=== PATIENT | female | born 1980 | race Caucasian/White ===

== ENCOUNTER 2023-11-09 06:01 | Emergency (ER) | payer OTHER, SELFPAY ==
[2023-11-09] VITALS (29 sets, daily range): BP systolic 99–124; BP diastolic 57–91; PULSE 78–93; RESP 16–18; TEMP 37.1; O2SAT 95–100
--- NOTE | ~2023-11-09 | CT_ITS ---
EXAMINATION: CT abdomen pelvis w con DATE: 11/09/2023 08:50 INDICATION: Abdominal pain and diarrhea, vomiting. History of gastric bypass. TECHNIQUE: Computed tomography (CT) of the abdomen and pelvis was performed with 100 CC Omnipaque 350 intravenous contrast. Automated exposure control and iterative reconstruction technique were employe d. Exam dose: 642.04 mGy-cm total exam DLP. COMPARISON: None. FINDINGS: Minimal discoid atelectasis or scarring at the posterolateral left lung base, left lower lo be. Minimal atelectasis, right lower lobe. No infiltrate or consolidation in the lower lung zones. Normal heart size. No pericardial or pleural effusion. There is diffuse hepatic steatosis. No hepatic space-occupying mass lesion is detected. Status post cholecystectomy. No unusual bile duct dilatation status post cholecystectomy. No pancreatic mass lesion, calcification or pancreatic duct dilatation. Normal splenic size. Normal morphology of the adrenal glands. No renal mass lesion is detected. There is diminished size since scarring of the left kidney likely due to chronic pyelonephritis in th e absence of evidence of significant atherosclerotic calcification of the left renal artery. There is bilateral nonobstructive nephrolithiasis. No ureteral calculus or hydroureteronephrosis is n oted on either side. Normal caliber of the abdominal aorta. No intraperitoneal or retroperitoneal or pelvic mass lesion or adenopathy or ascites. The uterus, adnexal areas and urinary bladder are unremarkable. Small sliding hiatal hernia. Status post gastric bypass surgery. There are fluid levels in the small bowel and right colon. No bowel obstruction, bowel wall thickenin g, pneumatosis or intraperitoneal free air is detected. Status post posterior and interbody surgical fusion at L4-L5, interbody surgical fusion at L5-S1. IMPRESSION: Small bowel and colonic air-fluid levels without obstruction, suggesting enterocolitis Hepatic steatosis Status post cholecystectomy Probable chronic pyelonephritis of left kidney Bilateral nonobstructive nephrolithiasis Small sliding hiatal hernia Status post gastric bypass surgery Reviewed, dictated and finalized at [facility]. Reviewed, dictated and finalized at [facility]. E DYE WORKER IMPRESSION: Small bowel and colonic air-fluid levels without obstruction, sugg esting enterocolitis Hepatic steatosis Status post cholecystectomy Probable chronic pyelonephritis of left kidney Bilateral nonobstructive nephrolithiasis Small sliding hiatal hernia Status post gastric bypass surgery
--- NOTE | 2023-11-09 06:17 | ED.GENADULT ---
HPI - General Adult General Chief complaint: Nausea/Vomiting/Diarrhea <Alcon Sanford MD - Last Filed: 11/14/23 07:08> Stated complaint: N/V X 1 WEEK <Alcon Sanford MD - Last Filed: 11/14/23 07:08> Time Seen by Provider: 11/09/23 06:07 <Alcon Sanford MD - Last Filed: 11/14/23 07:08> History of Present Illness HPI narrative: 43-year-old female presenting to the emergency department for evaluation nausea vomiting and diarrhea. Patient states on 10/30 she was diagnosed with COVID and had onset of nausea and vomiting. Patient reports the symptoms have persisted and continued to worsen. Patient reports she has also started developing diarrhea. Patient reports upper abdominal pain secondary to the vomiting. Patient has also complained of lower back pain which he states is chronic. Patient has a prior history of gastric bypass in 2016 at [facility] <Alcon Sanford MD - Last Filed: 11/14/23 07:08> Related Data Allergies/adverse reactions: Allergies Allergy/AdvReac Type Severity Reaction Status Date / Time acetaminophen [From Vicodin] AdvReac Gastrointestinal Verified 11/09/23 06:07 Upset hydrocodone [From Vicodin] AdvReac Gastrointestinal Verified 11/09/23 06:07 Upset levetiracetam [From Keppra] AdvReac Other Verified 11/09/23 06:07 tramadol AdvReac Gastrointestinal Verified 11/09/23 06:06 Upset <Alcon Sanford MD - Last Filed: 11/14/23 07:08> Review of Systems Review of Systems: All systems reviewed & are unremarkable except as noted in HPI and below <Alcon Sanford MD - Last Filed: 11/14/23 07:08> PMFSH Past Medical History Medical History: Medical History (Updated 11/10/23 @ 00:00 by Dk Parker) Chronic pain syndrome <Alcon Sanford MD - Last Filed: 11/14/23 07:08> Surgical History Surgical History: Surgical History (Updated 11/09/23 @ 10:09 by Sydnie Lucero MD) H/O gastric bypass <Alcon Sanford MD - Last Filed: 11/14/23 07:08> Social History Social History: Social History (Updated 11/09/23 @ 10:10 by Sydnie Lucero MD) Smoking status: Never smoker Alcohol intake: never <Alcon aSnford MD - Last Filed: 11/14/23 07:08> Exam Narrative: APPEARANCE: Uncomfortable. HEAD: normocephalic, atraumatic. EYES: PERRLA/EOMI, conjunctivae clear. NOSE: Normal no drainage NECK: Supple. No adenopathy, no masses. RESPIRATORY: Airway patent, respirations nonlabored. Clear to auscultation bilaterally, no rales, rhonchi, wheezing. CARDIOVASCULAR: Regular rate and rhythm without murmurs rubs or gallops. ABDOMINAL: Upper abdominal tenderness to palpation, some MUSCULOSKELETAL: Moves all extremities. Strength/ROM intact, No edema, No calf tenderness. NEURO: Alert. Cranial nerves II through XII intact. SKIN: Warm, dry. Normal Color <Alcon Sanford MD - Last Filed: 11/14/23 07:08> GI: GI Palp: Yes Soft to palpation, Yes Tenderness to palpation present (GI) (mild), No Guarding due to palpation present (GI), No Rigid due to palpation and No Hernia present <Sydnie Lucero MD - Last Filed: 11/09/23 16:55> Auscultation: bowels sounds not normal <Sydnie Lucero MD - Last Filed: 11/09/23 16:55> Course FIELD HANDYMAN/PA Physician Supervision For this patient encounter, I reviewed the FIELD HANDYMAN or PA documentation, treatment plan, and medical decision making; and I had [id number] time with this patient. <Alcon Sanford MD - Last Filed: 11/14/23 07:08> Reevaluation(s) Reevaluation #1: Patient has not had nausea or vomiting. Labs unremarkable. CT shows enterocolitis. UA shows LE 1+ and wbc 11-20. Will put on UTI <Sydnie Lucero MD - Last Filed: 11/09/23 16:55> Date: 11/09/23 <Sydnie Lucero MD - Last Filed: 11/09/23 16:55> Time: 10:10 <Sydnie Lucero MD - Last Filed: 11/09/23 16:55> Vital Signs Vital signs: Vital Signs Temperature 98.8 F 11/09/23 06:02 Pulse Rate 79
--- NOTE | 2023-11-09 06:29 | PC.NURSE ---
Pt mother(Vania Trivedi) would like an update once tests are completed. She has POA for her daughter.. Mom's
--- NOTE | 2023-11-09 06:33 | PC.NURSE ---
Mom (Vania Trivedi) would like an update on daughter once test results are back. [phone] - Mom has POA
[2023-11-09] MEDS: SODIUM CHLORIDE 0.9% IV 1,000 ML 999 ML IV CONT (06:43)
[2023-11-09] MEDS: ONDANSETRON INJ 4 MG/2 ML VIAL IV PUSH ×2 (06:43→08:59)
[2023-11-09 06:57] LABS: Basophils Percent Auto 0.2 % (0.2-1.2); Eosinophils Absolute Auto 0.2 K/mm3 (0-0.3); Eosinophils Percent Auto 2.6 % (0-4.4); Hematocrit 43.4 % (37.0-47.0); Hemoglobin 13.6 g/dL (12.0-15.0); Immature Granulocyte Absolute 0.01 K/mm3 (0.00-0.031); Immature Granulocyte Percent A 0.1 % (0-0.5); Lymphocytes Percent Auto 3.6 % (18.3-44.2); Mean Corpuscular HGB Conc 31.3 g/dl (32-36); Mean Corpuscular Volume 92.5 fl (80-100); Mean Platelet Volume 9.8 fl (7.4-10.4); Monocytes Absolute Auto 0.4 K/mm3 (0.1-0.6); Monocytes Percent Auto 4.6 % (2.6-8.5); Neutrophils Absolute Auto 7.4 K/mm3 (1.3-6.7); Neutrophils Percent Auto 88.9 % (45.5-73.1); Platelet Count Result 307 k/mm3 (150-375); Red Blood Count 4.69 M/mm3 (4.2-5.4); Red Cell Distribution Width 13.7 % (11.5-14.5); White Blood Count 8.3 K/mm3 (4.5-10.0)
[2023-11-09 07:35] LABS: Influenza A QL RT-PCR Negative (Negative); Influenza B QL RT-PCR Negative (Negative); RSV RNA, RT-PCR Negative (Negative); SARS-CoV-2 RNA PCR Negative (Negative)
[2023-11-09 07:43] LABS: Lactic Acid Reflex 1.6 mmol/L (0.7-2.0)
[2023-11-09 07:47] LABS: Appearance Urine Cloudy (Clear); Bacteria Urine None Seen /hpf; Bilirubin Urine Negative (Negative); Blood Urine Negative (Negative); Color Urine Yellow (Yellow); Glucose Urine UA Negative (Negative); Ketones Urine Negative (Negative); Leukocyte Esterase Ur 1+ LEU/UL (Negative); Nitrate Urine Negative (Negative); Non Pathogenic Casts 0-2; Protein Urine Negative (Negative); RBC Urine 0-2 /hpf (0-2); Specific Grav Ur 1.022 (1.001-1.035); Squamous Epithelial Cell Urine Occasional /hpf (Few); Urobilinogen Urine 0.2 mg/dL (<2.0); pH Urine 7.5 (5.0-9.0)
[2023-11-09 07:53] LABS: Alanine Aminotransferase 25 U/L (6-35); Albumin Level 4.2 g/dL (3.5-5.1); Alkaline Phosphatase 103 U/L (38-126); Anion Gap 10 mmol/L (8-16); Aspartate Amino Transferase 40 U/L (14-36); Bilirubin,Total 0.5 mg/dL (0.2-1.3); Blood Urea Nitrogen 19 mg/dL (7-17); Calcium 8.5 mg/dL (8.4-10.2); Carbon Dioxide 21 mmol/L (22-30); Chloride 107 mmol/L (98-107); Estimated CRCL calculation 84 ml/min; Estimated Glomerular Filt Rate > 60; Glucose 87 mg/dL (65-110); Lipase 104 U/L (23-300); Potassium 3.6 mmol/L (3.4-5.0); Sodium 138 mmol/L (137-145)
[2023-11-09 08:31] LABS: Add Urine Microscopic? YES
[2023-11-09] MEDS: KETOROLAC 30 MG/ML VIAL (*BKC) IV PUSH (09:02)
[2023-11-09] MEDS: PANTOPRAZOLE SODIUM IV 40 MG VIAL IV PUSH (09:02)
[2023-11-09] MEDS: DICYCLOMINE HCL INJ 20 MG/2 ML VIAL IM (09:06)
[2023-11-09] MEDS: LACTATED RINGERS 1,000 ML 999 ML IV CONT (09:08)
--- NOTE | 2023-11-09 09:47 | PC.NURSE ---
Pt gave permission to call her mother Vania who is also her POA, this RN called Vania and gave her an update regarding pt. Vania : [phone]
== END 2023-11-09 10:56 | disposition home or self-care (01) ==
PROVIDERS: Emergency Medicine; Emergency Provider General Practice; PCP Internal Medicine
DX: E86.0 Dehydration (principal); K52.9 Noninfective gastroenteritis and colitis, unspecified; Z20.822 Contact with and (suspected) exposure to COVID-19
CPT/HCPCS: 36415; 74177; 80053; 81001; 81025; 83605; 83690; 85025; 87086; 87088; 87637; 96361; 96372; 96374; 96375; 96376; 99284; C9113; J0500; J1885; J2405; J7030; J7120; Q9967

== ENCOUNTER 2025-08-02 13:13 | Outpatient (CLI) | payer OTHER, SELFPAY ==
[2025-08-02 13:45] LABS: INR 1.0; Prothrombin Time 12.9 Seconds (11.1-14.7)
[2025-08-02 13:46] LABS: Partial Thromboplastin Time 30.4 Seconds (22.3-36.8)
[2025-08-02 13:54] LABS: Anion Gap 10 mmol/L (4-12); Blood Urea Nitrogen 17 mg/dL (7-17); Calcium 8.8 mg/dL (8.4-10.2); Carbon Dioxide 17 mmol/L (22-30); Chloride 111 mmol/L (98-107); Estimated Glomerular Filt Rate > 60; Glucose 80 mg/dL (65-110); Potassium 3.7 mmol/L (3.4-5.0); Sodium 138 mmol/L (137-145)
--- OUTSIDE RECORDS SUMMARY | 2025-08-02 15:43 | XMS_ITS | Encounter Summary ---
Author Organization [facility] Address [address] [place] [phone] Phone Care Team Providers Care Car Distributor Name Role Phone Jc Ramirez MD Primary Care Provider [phone] Reason for Visit * Reason Comments New Med Request Encounter Details Date Type Department Care Team (Late st Contact Info) Description 07/24/2022 Refill [facility], [address] [phone] [place] [address] [place] [phone] Social History Tobacco Use Types Packs/Day Years Used Date Smoking Tobacco: Never Alcohol Use Standard Drinks/Week Comments No 0 (1 standard drink = 0.6 oz pur e alcohol) Comments Unknown Sex and Gender Information Value Date Recorded Sex Assigned at Not on file Legal Sex Female 2:51 PM EDT Gender Identity Not on file Sexual Orientation Not on file documented as of this encounter Plan of Treatment Not on file documented as of this encounter Visit Diagnoses Not on filedocumented in this encounter Care Teams Car Distributor Relationship Specialty Start Date End Date Jc Ramirez MD PCP - General Internal Medicine 05/15/21 documented as of this encounter
--- OUTSIDE RECORDS SUMMARY | 2025-08-02 15:43 | XMS_ITS | Encounter Summary ---
Author Organization [employer] [facility] Address [address] [place] [phone] Phone Care Team Providers Care Paint Crew Supervisor Name Role Phone Jc Ramirez MD Primary Care Provider [phone] Reason for Visit * Reason Comments Med Refill Encounter Details Date Type Department Care Team (Late st Contact Info) Description 08/13/2022 Refill [facility] [address] [phone] [place] [address] [place] [phone] Social History Tobacco Use Types Packs/Day [...] on file documented as of this encounter Miscellaneous Notes * Telephone Encounter - Asya Ritchie CMA - 08/13/2022 9:21 AM CDT Pt has 3 can and 1 no show she has to contact her pcp documented in this encounter Plan of Treatment Not on file documented as of this encounter Visit Diagnoses Not on filedocumented in this encounter Care Teams Paint Crew Supervisor Relationship Specialty Start Date End Date Jc Ramirez MD PCP - General Internal Medicine 05/15/21 documented as of this encounter
--- OUTSIDE RECORDS SUMMARY | 2025-08-02 15:43 | XMS_ITS | Clinical Summary ---
Author Organization [facility] Address [address] [place] [address] Phone Care Team Providers Care Tester Food Products Name Role Phone Jc Ramirez MD Primary Care Provider Allergies Active Allergy Reactions Criticality Noted Date Comments Silver Other (See Comments) 09/01/2017 Opsite Tramadol Nausea and Vomiting,Dizziness Low 2014 Medications levomilnacipra n (FETZIMA) 80 mg Extended Release 24 hour capsule Take 120 mg by mouth daily . Active busPIRone (BUSPAR) 10 mg tablet Take 15 mg by mouth 4 times daily . Active pregabalin (LYRICA) 100 mg Capsule Take 150 mg by mouth 3 times daily . Active NORETHINDRONE- E.ESTRADIOL-IR ON (MINASTRIN 24 FE ORAL) Take 1 Tablet by mouth late in the day . Active hyoscyamine sulfate (ANASPAZ RAPID DISSOLVE) 0.125 mg Tablet, Rapid Dissolve Place under tongue every 4 hours as needed. Active polyethylene glycol (MIRALAX) 17 gram Powder in Packet Take 17 Gram by mouth 1 time daily as needed for Constipation. Active valACYclovir (VALTREX) 500 mg tablet Take 500 mg by mouth daily at bedtime . Active FERROUS FUMARATE ORAL Take 1 Tablet by mouth nightly as needed . Active cholecalcifero l, vitamin D3, 1,000 unit Take 1,000 Units by mouth daily . Active multivitamin,t u-htin-na-min (THERA-M) 27-0.4 mg Tablet Take 1 Tab by mouth daily. Active CALCIUM CARBONATE/ANGELITO MIN D3 (CALCIUM+D ORAL) Take 1 Tablet by mouth daily . Active guar gum (BENEFIBER) Packet Take 1 Packet by mouth daily. Active famotidine (PEPCID) 20 mg tablet Take 20 mg by mouth 1 time daily as needed . Active Naproxen-Esome prazole Mag (VIMOVO) 500-20 mg Tab,IR & Delay Rel,Multiphasi c Take 1 Tablet by mouth 2 times daily . Active oxyMORphone 30 mg Extended Release 12 hour tablet Take 30 mg by mouth every 12 hours. Active oxyCODONE (ROXICODONE) 30 mg tabletIndicati ons:1-2 pills Take 60 mg by mouth every 4 hours as needed for Pain . Active cetirizine HCl (ZYRTEC ORAL) Take by mouth 1 time daily as needed. Active azelastine-flu ticasone (DYMISTA) 137-50 mcg/spray [place], Non-Aerosol Administer 1 [place] in each nostril 2 times daily. Active clonazePAM (KlonoPIN) 0.5 mg Tablet Take 1 mg by mouth daily at bedtime. Active cyanocobalamin (VITAMIN B-12) 1,000 mcg/mL Solution Inject 1 mL (1,000 mcg) by intramuscular injection every 30 days. 1 mL 8 Active Active Problems Problem Noted Date Diagnosed Date Pre-syncope Dehydration Bradycardia Gastroenteritis Hypotension Abnormal thyroid function test AUGIE (acute kidney injury) Immunizations Immunization Administration Dates Next Due (ADACEL/BOOSTRIX)(10 YR UP) TDAP VACCINE, 0.5ML, IM 11/12/2018 INFLUENZA VACCINE QUADRIVALENT 3 YR UP PF IM Family History Medical History Relation Name Comments Heart Disease Father Stroke Father Cancer Mother skin Relation Name Status Comments Father Alive Mother Alive Social History Tobacco Use Types Packs/Day Years Used Date Smoking Tobacco: Never Alcohol Use Standard Drinks/Week Comments Yes 0 (1 standard drink = 0.6 oz pur e alcohol) rare Comments No Sex and Gender Information Value Date Recorded Sex Assigned at Not on file Legal Sex Female 5:26 PM INTERNAL CONTROLS SPECIALIST Gender Identity Not on file Sexual Orientation Not on file Last Filed Vital Signs Vital Sign Reading Time Taken Comments Blood Pressure 121/91 11/14/2018 12:33 PM INTERNAL CONTROLS SPECIALIST Pulse 100 11/14/2018 12:33 PM INTERNAL CONTROLS SPECIALIST Temperature 36.8 C (98.3 F) 11/14/2018 12:29 PM INTERNAL CONTROLS SPECIALIST Respiratory Rate 18 11/14/2018 12:29 PM INTERNAL CONTROLS SPECIALIST Oxygen Saturation 96% 11/14/2018 12:29 PM INTERNAL CONTROLS SPECIALIST Inhaled Oxygen Concentration - - Weight 99.3 kg (219 lb) 11/13/2018 11:00 PM INTERNAL CONTROLS SPECIALIST Height 170.2 cm (5' 7) 11/13/2018 11:00 PM INTERNAL CONTROLS SPECIALIST Body Mass Index 34.3 11/13/2018 11:00 PM INTERNAL CONTROLS SPECIALIST Plan of Treatment Health Maintenance Due Date Last Done Comments HEPATITIS B VACCINES (1 of 3 - 19+ 3-dose series) 1997 HPV/Cotest (21-29) 1999 CERVICAL CANCER SCREENING 2008 HPV/Cotest (30-65) 2008 PAP SMEAR 2008 BREAST CANCER SCREENING 2018 COLORECTAL SCREENING 2023 Colorectal Cancer Screening 2023 FIT-DNA Q 3 years 2023 FIT/FOBT Q 1 year 2023 Flex Sig/CT Colonography Q 5 years 2023 INFLUENZA VACCINE (#1) 2025 11/13/2018, 2016 DTAP/TDAP/TD VACCINES (2 - Td or Tdap) 11/12/2028 Medical Devices Implanted Type Area Crm Manager Device Identifier Shelf Expiration Date Model / Serial / Lot Metronic Capstone Spinal System Implanted:Qty: 1 on 04/15/2015 by Jay Greenberg MD at [facility] Cage N/A: Spine Lumbar MEDTRONIC - SPINAL fka KYPHON 11/25/2020 [id number] / / [id number] 40 Mm Darío Implanted:Qty: 2 on 04/15/2015 by Jay Greenberg MD at [facility] Darío N/A: Spine Lumbar MEDTRONIC - SPINAL fka KYPHON [id number] / / Description:sterilized march 192014 load 413 Screw Solera Ma 6.5x40mm [id number] - Ssterilized April 14, 2015 Load 413 Implanted:Qty: 2 on 04/15/2015 by Jay Greenberg MD at [facility] Screw Left: Spine Lumbar MEDTRONIC- SOFAMOR DANEK [id number] / STERILIZED APRIL 14, 2015 LOAD 413 / Screw Solera Pooja Ma 7.5x35mm [id number] - Ssterilized April 14, 2015 Load 413 Implanted:Qty: 2 on 04/15/2015 by Jay Greenberg MD at [facility] Screw Left: Spine Lumbar MEDTRONIC- SOFAMOR DANEK [id number] / STERILIZED APRIL 14, 2015 LOAD 413 / Set Screw Sextant Break-Off [id number] - Ssterilized April 14, 2015 Load 413 Implanted:Qty: 4 on 04/15/2015 by Jay Greenberg MD at [facility] Screw Left: Spine Lumbar MEDTRONIC- SOFAMOR DANEK [id number] / STERILIZED APRIL 14, 2015 LOAD 413 / Sealant Floseal W/ Adptr 10ml [id number] - [id number] Implanted:Qty: 1 on 04/15/2015 by Jay Greenberg MD at [facility] Sealant Left: Spine Lumbar TOLEDO- BIOSCIENCE 07/18/2016 [id number] / / [id number] Refugio Dbm Matrix Strips Implanted:Qty: 1 on 04/15/2015 by Jay Greenberg MD at [facility] MEDTRONIC- SOFAMOR DANEK 10/31/2017 [id number] / [id number] / [place] OPTIONS O [id number] Member Subscriber Plan / Payer ( fective 2021-Present) Name:Sixto Becerra Relation to Subscriber:Self Name:Sixto Becerra Payer ID:[id number] ([facility]) Type:[facility] Address: [facility] [id number] [place] [id number] MEDICARE PART A AND B Advance Directives For more information, please contact: [phone] * Full Code (Latest Code Status on File) Date Activated Date Inactivated Comments 11/13/2018 1:06 AM 11/14/2018 5:51 PM * Full Code Date Activated Date Inactivated Comments 04/15/2015 7:11 AM 04/17/2015 5:40 PM * Full Code Date Activated Date Inactivated Comments 04/15/2015 6:12 AM 04/15/2015 7:11 AM Care Teams Tester Food Products Relationship Specialty Start Date End Date Jc Ramirez MD [address] [place] [id number] PCP - General Internal Medicine 11/12/18
--- OUTSIDE RECORDS SUMMARY | 2025-08-02 15:43 | XMS_ITS | Clinical Summary ---
Author Organization [employer] [facility] [employer] [facility] Address [address] [phone] Phone Care Team Providers Care Axle Turner Name Role Phone Jc Ramirez MD Primary Care Provider [phone] Medications Azelastine-Flutic asone 137-50 MCG/ACT suspension Administer into affected nostril(s) daily Active Buprenorphine HCl-Naloxone HCl 12-3 MG film 05/05/20 21 Active busPIRone (BUSPAR) 15 MG tablet Take 15 mg by mouth 3 times a day 04/19/20 21 Active cetirizine (ZyrTEC) 10 MG tablet Take 10 mg by mouth daily Active cholecalciferol (VITAMIN D-3) 25 MCG (1000 UT) tablet Take 1,000 Units by mouth daily Active cyanocobalamin (VITAMIN B-12) 1000 MCG/ML injection cyanocobalamin (vit B-12) 1,000 mcg/mL injection solution 11/14/20 18 Active ferrous gluconate (FERGON) 324 (38 Fe) MG tablet 1 (one) time each day 07/21/20 15 Active FLUoxetine (PROzac) 20 MG capsule fluoxetine 20 mg capsule 11/19/19 19 Active gabapentin (NEURONTIN) 600 MG tablet Take 600 mg by mouth at night if needed 06/22/20 20 Active hydrOXYzine (ATARAX) 25 MG tablet Take 25 mg by mouth 1 (one) time each day if needed for anxiety 05/10/20 21 Active hyoscyamine (ANASPAZ) 0.125 MG disintegrating tablet hyoscyamine 0.125 mg disintegrating tablet Active ibuprofen (ADVIL,MOTRIN) 800 MG tablet Take 800 mg by mouth every 8 (eight) hours 06/22/20 20 Active montelukast (SINGULAIR) 10 MG tablet Take 10 mg by mouth at bed time 01/11/20 19 Active ondansetron (ZOFRAN) 4 MG tablet Take 4 mg by mouth 1 (one) time each day if needed 03/04/20 21 Active pantoprazole (PROTONIX) 40 MG EC tablet Take 20 mg by mouth 2 (two) times a day Active polyethylene glycol (GLYCOLAX) 17 GM/SCOOP powder Take 17 g by mouth 1 (one) time each day if needed Active potassium chloride (MICRO-K) 10 MEQ CR capsule Take 20 mEq by mouth 1 (one) time each day 04/26/20 21 Active sulfamethoxazole- trimethoprim 800-160 MG per tablet sulfamethoxazole 800 mg-trimethoprim 160 mg tablet Active B-D 3CC LUER-JESSE SYR 23GX1 23G X 1 3 ML misc 03/17/20 21 Active valACYclovir (VALTREX) 500 MG tablet Take 500 mg by mouth 1 (one) time each day if needed 01/23/20 19 Active sodium bicarbonate 650 MG tablet TAKE TWO TABLETS BY MOUTH TWICE DAILY 180 tablet 11/13/20 21 Active nitrofurantoin (MACRODANTIN) 100 MG capsule Take 1 capsule (100 mg total) by mouth in the morning and 1 capsule (100 mg total) in the evening. 40 capsule 02/07/20 22 Active famotidine (PEPCID) 20 MG tablet TAKE 2 TABLETS BY MOUTH EVERY NIGHT AT BEDTIME 90 tablet 06/18/20 22 Active spironolactone (ALDACTONE) 25 MG tablet Take 1 tablet (25 mg total) by mouth every morning 90 tablet 1 07/11/20 22 Active potassium citrate 10 MEQ (1080 MG) CR tablet Take 1 tablet (10 mEq total) by mouth in the morning and 1 tablet (10 mEq total) in the evening. 180 tablet 1 07/24/20 22 Active Family History Medical History Relation Comments Heart disease Father Cancer Mother Relation Status Comments Father Mother Social History Tobacco Use Types Packs/Day Years [...] Sign Reading Time Taken Comments Blood Pressure 140/82 02/02/2022 11:02 AM CDT Pulse 82 02/02/2022 11:02 AM CDT Temperature 36.8 C (98.2 F) 02/02/2022 11:02 AM CDT Respiratory Rate 18 02/02/2022 11:02 AM CDT Oxygen Saturation 98% 02/02/2022 11:02 AM CDT Inhaled Oxygen Concentration - - Weight 77.1 kg (170 lb) 02/02/2022 11:02 AM CDT Height 157.5 cm (5' 2) 02/02/2022 11:02 AM CDT Body Mass Index 31.09 02/02/2022 11:02 AM CDT Plan of Treatment Health Maintenance Due Date Last Done Comments Hepatitis B Vaccine (1 of 3 - 19+ 3-dose series) 1997 Pneumococcal Vaccine: Peds ( 0 to 5 Years) and At-Risk Patients (6 to 49 Years) (2 of 2 - PCV) 08/31/2022 08/31/2021 Influenza Vaccine (#1) 2025 , 08/30/2021, 08/18/2019, Additional history exists Insurance Medicaid [place] Care Teams Axle Turner Relationship Specialty Start Date End Date Jc Ramirez MD PCP - General Internal Medicine 05/15/21
--- OUTSIDE RECORDS SUMMARY | 2025-08-02 15:43 | XMS_ITS | Encounter Summary ---
Author Organization [facility] Address [address] [facility] [address] [place] [address] Phone Care Team Providers Care Paint Tinter Name Role Phone Jc Ramirez MD Primary Care Provider + [phone] Norberto Tsang MD Unavailable [phone] Byron Mark MD Unavailable Daisy Fontenot RN Unavailable Unavailab Walker Ricks MD Unavailable [phone] Jordy Ryan DO Unavailable [phone] Encounter Details Date Type Department Care Team (Late st Contact Info) Description 02/28/2021 Ophth Exam [facility] Medicine Ophthalmology [address] [place] [address] [place] [id number] Adalid Sultana MD [address] [place] [address] Social History Tobacco Use Types Packs/Day Years Used Date Smoking Tobacco: Former Smokeless Tobacco: Never Alcohol Use Standard Drinks/Week Comments No 0 (1 standard drink = 0.6 oz pur e alcohol) Social Connection and Isolation Panel Answer Date Recorded In a typical week, how many times do you talk on the phone with family, friends, or neighbors? Three times a week 02/02/2021 How often do you get togethe r with friends or relatives? Never 02/02/2021 How often do you attend chur ch or jainism services? Never 02/02/2021 Do you belong to any clubs o r organizations such as adventist groups, unions, fraternal or athletic groups, or school groups? No 02/02/2021 How often do you attend meet ings of the clubs or organizations you belong to? Never 02/02/2021 Are you , , di vorced, , never , or living with a partner? 02/02/2021 Overall Financial Resource Strain (CARDIA) Answe r Date Recorded How hard is it for you to pa y for the very basics like food, housing, medical care, and heating? Very hard 02/02/2021 Hunger Vital Sign Answer Date Recorded Worried About Running Out of Food in the Last Ye ar Never true 01/07/2020 Ran Out of Food in the Last Year Never true 01/07/2020 PRAPARE - Transportation Answer Date Re corded In the past 12 months, has l ack of transportation kept you from medical appointments or from getting medications? No 01/16 In the past 12 months, has l ack of transportation kept you from meetings, work, or from getting things needed for daily living? 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 Gender Identity Female 06/12/2021 7:17 PM CDT Sexual Orientation Straight 06/12/2021 7: 17 PM CDT documented as of this encounter Plan of Treatment Not on file documented as of this encounter Visit Diagnoses Not on filedocumented in this encounter Additional Health Concerns Infection Onset Date Last Indicated Resolved Time COVID: Suspected 07/13/2021 07/13/2021 07/13/2021 9:02 PM CDT COVID: Suspected 08/07/2021 08/07/2021 08/07/2021 12:55 PM CDT Rhino/Enterovirus 08/07/2021 08/07/2021 08/14/2021 3:05 AM CDT COVID: Suspected 08/28/2021 08/28/2021 08/29/2021 12:04 AM CDT 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 09/26/21; 04/23/23 09/26/2021 04/23/2023 CRE Comment:CRE ESBL E.coli urine 09/26/21; 04/23/23 09/26/2021 04/23/2023 documented as of this encounter Eye Exam Visual Acuity Right eye Left eye Near cc 20/20 20/20 Tonometry (Tonopen, 1:00 PM) Right eye Left eye Pressure 13 9 Pupils Dark Light Shape React APD Right eye 6 3 Round Brisk - Left eye 5 2 Round Brisk - Visual Leung (Counting fingers) Right eye Left eye Full Full Extraocular Movement Right eye Left eye Full Full External Exam Right eye Left eye External Normal Normal Slit Lamp Exam Right eye Left eye Lids/Lashes Normal Normal Conjunctiva/Sclera White and quiet White and fatmata et Cornea Clear Clear Anterior Chamber Deep and quiet Deep and quiet Iris Round and reactive Round and catherine ctive Lens Clear Clear Vitreous Normal Normal Fundus Exam Right eye Left eye Disc Normal, PPA, sharp m argins, no elevation, no pallor Normal, PPA, sharp margins, no elevation, no pallor C/D Ratio 0.2 0.2 Macula Normal, flat, no heme Normal, fl at, no heme Vessels Normal c/c Normal c/c Periphery Normal, no heme, att ached 360 w/o RD/RT Normal, no heme, attached 360 w/o RD/RT Care Teams Paint Tinter Relationship Specialty Start Date End Date Jc Ramirez MD PCP - General Internal Medicine 11/20/18 [place] [id number] [address] [address] Consulting Physician Cardiovascular Disease 12/15/18 [place] [id number] [address] [address] Consulting Physician Pain Management 12/15/18 Daisy Fontenot, RN Registered Nurse 12/29/18 [place] [id number] [address] [address] Consulting Physician Pulmonary Disease 08/10/21 [place] [id number] [address] [address] Consulting Physician Nephrology 09/01/21 documented as of this encounter
--- OUTSIDE RECORDS SUMMARY | 2025-08-02 15:44 | XMS_ITS | Clinical Summary ---
Author Organization [facility] Address [address] [place] [address] Care Team Providers Care Mental Health Professional Name Role Phone Jc Ramirez MD Primary Care Provider [phone] Norberto Tsang MD Unavailable [phone] Byron Mark MD Unavailable [phone] Daisy Fontenot RN Unavailable Unavailab Walker Ricks MD Unavailable [phone] Jordy Ryan DO Unavailable Allergies Active Allergy Reactions Criticality Noted Date Comments Adhesive Tape-Silicones Blisters High 07/19/2020 Hydrocodone-Acetaminophen Dizziness,Nausea & Vomiting Medi um 08/28/2016 Levetiracetam Other (See comments) Low 08/28/2021 falls Silver Blisters High 09/01/2017 Opsite Tramadol Hcl Nausea And Vomiting Medium 08/28/2016 Medications cyanocobalamin (Vitamin B-12) 1,000 mcg/mL injection Inject 1,000 mcg into the muscle as instructed every 30 (thirty) days Around the 15 of the month Active FLUoxetine (PROzac) 20 mg capsule Take 1 capsule by mouth daily. 11/19/19 19 Active valACYclovir (VALTREX) 500 mg tablet Take 500 mg by mouth daily as needed Active busPIRone (BUSPAR) 15 mg tabletIndications: Generalized Anxiety Disorder Take 1 tablet (15 mg total) by mouth 3 (three) times a day. 01/11/20 19 Active Additional Information Patient taking differently:15 mg oral4 times daily, Indications: Generalized Anxiety Disorder, Informant: Self, Reported on 01/06/2020 montelukast (SINGULAIR) 10 mg tablet Take 1 tablet (10 mg total) by mouth nightly. 01/11/20 19 Active cholecalciferol (VITAMIN D-3) 25 mcg (1,000 unit) tablet Take 1,000 Units by mouth daily Active hyoscyamine (OSCIMIN) 0.125 mg hyoscyamine 0.125 mg disintegrating tablet Active multivitamin,tx-ir st-Ua-RL-min 27-0.4 mg tablet Take 1 tablet by mouth daily Active polyethylene glycol (MIRALAX) 17 gram packet Take 17 g by mouth daily as needed Active gabapentin (NEURONTIN) 600 mg tablet Take 600 mg by mouth nightly 06/22/20 20 Active ferrous gluconate 324 mg (37.5 mg of elemental iron) tablet daily 07/21/20 15 Active syringe with needle (BD Luer-Paulino Syringe) 3 mL 23 x 1 syringe BD Luer-Paulino Syringe 3 mL 23 x 1 Active norethindrone (MICRONOR) 0.35 mg tablet norethindrone (contraceptive) 0.35 mg tablet Active hydrOXYzine (ATARAX) 25 mg tablet 03/15/20 21 Active buprenorphine-nalo xone (SUBOXONE) 8-[address] 1 Film under the tongue 2 (two) times a day Active albuterol 2.5 mg /3 mL (0.083 %) nebulizer solution Take 3 mL (2.5 mg total) by nebulization every 6 (six) hours as needed for wheezing 75 mL 08/10/20 21 Active lemborexant (Dayvigo) 5 mg tablet Take 5 mg by mouth nightly as needed Active acetaminophen (TYLENOL) 325 mg tablet Take 2 tablets (650 mg total) by mouth every 6 (six) hours as needed for pain 30 tablet 09/27/20 21 Active serdexmethylphen-d exmethylphen (Azstarys) 39.2 mg- 7.8 mg capsule Take by mouth Active buprenorphine-nalo xone (SUBOXONE) 4-[address] 1 Film under the tongue daily PM Active ondansetron ODT (ZOFRAN-ODT) 8 mg disintegrating tabletIndications: Nausea Take 1 tablet (8 mg total) by mouth every 8 (eight) hours as needed for nausea or vomiting 20 tablet 04/28/20 Active ketorolac (TORADOL) 10 mg tablet Take 1 tablet (10 mg total) by mouth every 6 (six) hours as needed for pain 10 tablet 04/28/20 Active prochlorperazine (COMPAZINE) 5 mg tablet Take 1 tablet (5 mg total) by mouth every 6 (six) hours as needed for nausea or vomiting 10 tablet 04/28/20 Active Active Problems Problem Noted Date Diagnosed Date Obstructive sleep apnea (adult) (pediatric) 05/2025 UTI (urinary tract infection), uncomplicated 07/2023 Assessment & Plan (04/27/2023 4:34 PM CDT): ESBL E coli (sensitive to fosfomycin & nitrofurantoin), diagnosed 04/23/23 (ED visit). No dysuria, but has b/l flank pain. -s/p fosfomycin 3g x1 in the ED. I confirmed w/ the clinical phamacist textile conservator that one dose is adequate. If she worsens, then can give 1-2 more doses at q3days intervals, or give a course of nitrofurantoin. -CT 04/26/23 w/o explanation. She has non obstructive stones -Ultrasound kidney > No hydroneophrosis in either kidney, no change in stone burden vs CT 4 days prior with bilateral small nonobstructing stones. - Endorses crampy flank pain, agreeable to ketorolac. Assessment & Plan (04/26/2023 7:39 PM CDT): ESBL E coli (sensitive to fosfomycin & nitrofurantoin), diagnosed 04/23/23 (ED visit). No dysuria, but has b/l flank pain. -s/p fosfomycin 3g x1 in the ED. I confirmed w/ the clinical phamacist textile conservator that one dose is adequate. If she worsens, then can give 1-2 more doses at q3days intervals, or give a course of nitrofurantoin. -CT 04/26/23 w/o explanation. She has non obstructive stones -Ultrasound kidney. If improves, no need this need not delay discharge Falls 04/26/2023 Assessment & Plan (04/27/2023 1:19 PM CDT): Unclear etiology. +mild vertigo. No lightheadedness. No LOC. HCT normal. Most likely etiology is polypharmacy with numerous [employer]ESS [employer]ER active meds, including suboxone, fluoxetine, atarax prn & buspirone prn (takes multiple doses of both daily), Azstarys (recently started for ADHD), Dayvigo (for insomnia), hyoscyamine. EKG ok. Low c/f overall for cardiac or [employer]OTECH[employer] PRESS TENDER etiology. - Hold buspirone, hold Azstarys (serdexmethylphenidate / dexmethylphenidate), hold Dayvigo (lemborexant) (not on formulary) - Orthostatic sequence > without orthostatic hypotension - TSH > 0.91 - No AUGIE, tolerates PO so hold off IVF > good intake - PT pending, however she is walking Assessment & Plan (04/26/2023 8:13 PM CDT): Unclear etiology. +mild vertigo. No lightheadedness. No LOC. HCT normal. -Unclear etiology. Most likely is polypharmacy with numerous [employer] PRESS T[employer]ER active meds, including suboxone, fluoxetine, atarax prn & buspar prn (takes multiple doses of both daily), Azstarys (recently started for ADHD), dayvigo (for insomnia), hyosciamine. EKG ok. Low c/f overall for cardiac or [employer]ER etiology. -Hold buspar, hold Azstarys, hold dayvigo (not on formulary) -PT; Orthostatic sequence; TSH -No AUGIE, tolerates PO so hold off IVF Chronic low back pain 04/26/2023 Assessment & Plan (04/27/2023 12:58 PM CDT): She takes suboxone 8-2 BID and 4-1 PM for chronic low back pain (different than the b/l flank pain, which is acute) after low back pain surgery. This does not appear on PDMP but using the reconcile outside information tab contains prescriptions from [facility] in [place] (likely why does not show up on PDMP). Of note UDS unremarkable. Lab customer service states our screening assay does not screen for suboxone. - continue suboxone. Assessment & Plan (04/26/2023 8:14 PM CDT): She takes suboxone 8-2 BID and 4-1 PM for chronic low back pain (different than the b/l flank pain, which is acute) after low back pain surgery. -Continue suboxone. This does not appear on PDMP but using the reconcile outside information tab, I see prescriptions from [facility] in [place] (likely why does not show up on PDMP). Of note UDS unremarkable. I called the lab customer service and our screening assay does not screen for suboxone. HTN (hypertension) 04/26/2023 Assessment & Plan (04/26/2023 10:04 PM CDT): Hold home losartan as BP 110s Assessment & Plan (04/26/2023 7:35 PM CDT): Hold home losartan as BP 110s Abnormal urinalysis 08/29/2021 Shortness of breath 08/29/2021 Falls 08/29/2021 Nephrolithiasis 08/29/2021 HTN (hypertension) 08/29/2021 Abnormal thyroid function test 08/28/2021 Bradycardia 08/28/2021 Dehydration 08/28/2021 Family history of ischemic h eart disease and other diseases of the circulatory system 08/28/2021 Gastroenteritis 08/28/2021 Pre-syncope 08/28/2021 Restless legs 08/28/2021 Metabolic acidosis 08/28/2021 Bronchiectasis with acute exacerbation Rhinovirus infection 08/07/2021 Chronic respiratory failure with hypoxia 021 AUGIE (acute kidney injury) 08/07/2021 Normal anion gap metabolic acidosis 08/07/2021 High anion gap metabolic acidosis 08/07/2021 Bilateral leg edema 08/07/2021 Bruising 08/07/2021 Pyuria 08/07/2021 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 - spinal hardware in place. - L spine MRI (02/16/21) showed abscess resolution. - patient was discharged on Oxacillin, completed 6 weeks of therapy and transitioned to suppressive therapy due to hardware in place. - continue suppressive therapy with Bactrim for retirement suppression. - CBC and CMP wnl. - While taking bactrim, CBC and CMP should be checked on a weekly basis, due to the possibility of bone marrow suppression and hyperkalemia. Nausea and vomiting are common side effects of bactrim. Other possible side effects include cholestatic hepatitis, or photosensitivity. Rarely, bactrim may be associated with Baker-Devin syndrome, toxic epidermal necrolysis, aseptic meningitis, pancreatitis, neurologic toxicities (tremor, ataxia, clonus), interstitial nephritis, or Sweet's syndrome. Assessment & Plan (04/04/2021 1:27 PM CDT): - OSH lumbar spine CT W (01/28/21) with small deep subcutaneous loculated collection overlying the deep fascia at the L5 level tapering inferiorly, possible post op seroma evolving hematoma vs infection. - spinal hardware in place. - L spine MRI (02/16/21) showed abscess resolution. - patient was discharged on Oxacillin, completed 6 weeks of therapy as of today. - Due to hardware in place, will start patient on Bactrim for terminal superintendent suppression. - CBC and CMP wnl. Muscle twitching 02/27/2021 Cerebral edema 01/31/2021 PYROTECHN[employer] PRESS TENDER infection 01/31/2021 Bacteremia 01/30/2021 Assessment & Plan (04/04/2021 1:25 PM CDT): - MSSA & Klebsiella bacteremia - Brain MRI showed cerebral edema with transtentorial herniation, unclear if there may be Klebsiella in the brain, due to herniation an LP was not possible. Antibiotics were dosed for treatment of meningitis. -- completed oxacillin + cipro at [employer] dosing x 6 weeks oxacillin (end date 03/13), 3 weeks cipro (end date of 02/20) -- Patient is doing well clinically today, no acute s/s of infection noted. - We discussed the rationale for treatment, culture results, treatment plan, length of therapy, risk of recurrent infection, as well as signs/symptoms of recurrent infection, worsening cough or shortness of breath,etc) and to contact ID with any concerns. - Can stop oxacillin today Bacteremia due to Klebsiella pneumoniae 01/31/20 Hydronephrosis with urinary obstruction due to ureteral calculus- L-ureter stent 01/30/2021 Pneumonia 01/30/2021 Sepsis 01/30/2021 Toxic metabolic encephalopathy associated with s epsis 01/28/2021 Assessment & Plan (07/11/2021 9:10 AM CDT): Cerebral edema with EVD placement; already intubated for bacteremia with respiratory failure at onset of neurologic symptoms; markedly improved I will provide a return to work letter Consider neuropsychologic testing if she finds that she is having higher level cognitive deficits Esophageal dysphagia 09/02/2020 Overview (09/02/2020): Added automatically from request for surgery [id number] Influenza A 01/09/2020 Morbidly obese 01/09/2020 GERD (gastroesophageal reflux disease) 0 Migraine 01/09/2020 DDD (degenerative disc disease), lumbar 01/09/20 20 Anxiety and depression 01/09/2020 Hypokalemia 01/09/2020 HINES (nonalcoholic steatohepatitis) 01/09/2020 RTA (renal tubular acidosis) 01/09/2020 Hypersomnia of non-organic origin 08/18/2019 Anemia, chronic disease 01/22/2019 Anxiety 01/22/2019 Opioid dependence with withdrawal 01/09/2019 Postural orthostatic tachycardia syndrome 2018 Psychophysiological insomnia 12/18/2016 Hyperlipidemia 03/17/2014 Arthritis 02/11/2014 Irritable bowel syndrome 02/11/2014 Assessment & Plan (04/27/2023 1:08 PM CDT): On CT, mod amount of stool throughout the colon w/o evidence of bowel obstruction. On Suboxone and multiple medications with anticholinergic effects. May be contributing to abdominal discomfort. - bowel reg, escalate to effect Major depression, recurrent 02/11/2014 Vitamin deficiency 02/11/2014 Chronic back pain Lumbar post-laminectomy syndrome Spinal stenosis of lumbar re gion without neurogenic claudication Seizures Resolved Problems Problem Noted Date Diagnosed Date Resolved Date Acute on chronic respiratory failure with hypoxia (CMS/HCC) 01/30/2021 07/30/2021 UTI (urinary tract infection) 12/12/2018 12/12/2018 Immunizations Immunization Administration Dates Next Due Influenza, Quadrivalent, Split, Intramuscular Influenza, Quadrivalent, Spl it, Preservative Free, Intramuscular 09/01/2021,11/13/2018 Influenza, Unspecified 08/18/2019 Pfizer SARS-CoV-2 Monovalent Vaccination (12+ Yrs) PURPLE 06/29/2021,06/08/2021 Pneumococcal Polysaccharide PPV23 08/31/2021 Tdap 11/12/2018 Surgical History Surgery Date Site/Laterality Comments CHOLECYSTECTOMY SECTION BREAST EXCISIONAL BIOPSY 11/18/2011 - 11/17/2012 Left LAPAROSCOPIC GASTRIC BANDING 11/18/2011 - 11/17/2012 removal 2014 GASTRIC BYPASS 11/18/2013 - 11/17/2014 BACK SURGERY 2005, 2015 LUMBAR PUNCTURE WO INJECTION , DIAGNOSTIC 03/06/2021 N/A Medical History Medical History Date Comments Arthritis IBS (irritable bowel syndrome) Anxiety and depression Influenza A 12/2019 Migraine HINES (nonalcoholic steatohepatitis) Chronic back pain 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 Respiratory failure (HCC) 01/2021 Cerebral edema (HCC) 01/2021 MSSA (methicillin susceptible Staphylococcus aur eus) pneumonia (HCC) 01/2021 Bacteremia due to Klebsiella pneumoniae 01/2021 Seizures ([facility]) Bronchiectasis Renal disorder Family History Medical History Relation Name Comments Cancer Maternal Grandmother Asthma Mother Diabetes Mother Cancer Mother's Brother Cancer Mother's Sister Relation Name Status Comments Maternal Grandmother Mother Mother's Brother Mother's Sister Social History Tobacco Use Types Packs/Day Years Used Date Smoking Tobacco: Never Smokeless Tobacco: Never Alcohol Use Standard Drinks/Week Comments No 0 (1 standard drink = 0.6 oz pur e alcohol) Social Connection and Isolation Panel Answer Date Recorded In a typical week, how many times do you talk on the phone with family, friends, or neighbors? More than three times a week 08/29/2021 Frequency of Social Gatherin gs with Friends and Family Not on file 08/29/2021 How often do you attend chur ch or gnosticism services? Never 08/29/2021 Do you belong to any clubs o r organizations such as scientologist groups, unions, fraternal or athletic groups, or school groups? No 08/29/2021 How often do you attend meet ings of the clubs or organizations you belong to? Never 08/29/2021 Are you , , di vorced, , never , or living with a partner? 08/29/2021 AUDIT-C Answer Date Recorded Q1: How often do you have a drink containing alc ohol? Never 04/12/2021 Average Number of Drinks Not on file 021 Frequency of Binge Drinking Not on file 03/19 Overall Financial Resource Strain (CARDIA) Answe r Date Recorded How hard is it for you to pa y for the very basics like food, housing, medical care, and heating? Very hard 08/29/2021 Hunger Vital Sign Answer Date Recorded Within the past 12 months, y ou worried that your food would run out before you got the money to buy more. Never true 08/29/20 21 Within the past 12 months, t he food you bought just didn't last and you didn't have money to get more. Never true 08/29/2021 PRAPARE - Transportation Answer Date Re corded In the past 12 months, has l ack of transportation kept you from medical appointments or from getting medications? No 08/18 In the past 12 months, has l ack of transportation kept you from meetings, work, or from getting things needed for daily living? No 08/29/2021 Housing Stability Vital Sign Answer Óscar e Recorded In the last 12 months, was t here a time when you were not able to pay the mortgage or rent on time? No 08/29/2021 Number of Places Lived in the Last Year Not on f ile 08/29/2021 In the last 12 months, was t here a time when you did not have a steady place to sleep or slept in a half-way (including now)? No 08/29/2021 Personal Safety Answer Date Recorded Have you ever been in or are you currently in a harmful physical or emotional relationship or is someone making you feel afraid or unsafe? Denies 04/26/2023 Comments No Sex and Gender Information Value Date Recorded Sex Assigned at Not on file Legal Sex Female 9:07 AM [employer] Gender Identity Female 06/12/2021 7:17 PM CDT Sexual Orientation Straight 06/12/2021 7: 17 PM CDT Obstetrics History Last Filed Vital Signs Vital Sign Reading Time Taken Comments Blood Pressure 117/73 04/28/2023 8:41 AM CDT Pulse 84 04/28/2023 8:41 AM CDT Temperature 36.9 C (98.4 F) 04/28/2023 8:41 AM CDT Respiratory Rate 18 04/28/2023 8:41 AM CDT Oxygen Saturation 99% 04/28/2023 8:41 AM CDT Inhaled Oxygen Concentration - - Weight 83.6 kg (184 lb 4.8 oz) 04/26/2023 6:29 P M CDT Height 170.2 cm (5' 7) 04/26/2023 6:29 PM CDT Body Mass Index 28.87 04/26/2023 6:29 PM CDT Plan of Treatment Health Maintenance Due Date Last Done Comments Breast Cancer Screening-Mammogram 1978 Cervical Cancer Screening 1978 Colon Cancer Screening-Colonoscopy 1978 Depression Screening 1978 Hepatitis B Screening 1996 Regular Well Visit/Exam 18-64 1996 Pneumococcal vaccine <65 (2 of 2 - PCV) 08/31/2022 08/31/2021 Covid-19 Vaccine (3 - 2024-2 6 season) 2025 06/29/2021, 06/08/2021 Influenza Vaccine (#1) 2025 , 08/30/2021, 08/18/2019, Additional history exists DTaP/Tdap/Td Vaccine (2 - Td or Tdap) 11/12/2028 11/12/2018 Hepatitis C Screening Completed 02/01/2021 Medical Devices Explanted Type Area Chick Grader Device Identifier Shelf Expiration Date Model / Serial / Lot [employer] [id number] Inlay [place] 7fr 28cm Pusher Fluoro Marker Atraumatic Insertion Latex Free - [id number] Implanted:Qty: 1 on 01/29/2021 by Nelson Dodson MD at [facility] Explanted:Qty: 1 on 04/23/2023 Left: Urethra [employer] [id number] 08/04/2025 [id number] / / [id number] Procedures Procedure Name Priority Date/Time Associated Diagnosis Comments HEPATITIS PANEL, ACUTE Routine 02/01/2021 9:44 AM CDT from Last 3 Months or Most Recently Relevant to Health Maintenance Results * Hepatitis panel, acute (02/01/2021 9:44 AM CDT) Hep A IgM Nonreactive Nonreactive [facility] Comment: Interpretive Data: If Hep A IgM Ab is reported as Equivocal, a new sample should be drawn in two weeks for testing. Current interpretive data was last revised on 20. Hep B core IgM Nonreactive Nonreactive [facility] Comment: Interpretive Data If HepB Core IgM Ab is reported as Equivocal, a new sample should be drawn in two weeks for testing. Current interpretive data was last revised on 20. Hep C Ab Nonreactive Nonreactive [facility] Comment:Antibodies to HCV no t detected. Does NOT exclude the possibility of recent exposure to HCV. HepBsAg Nonreactive Nonreactive [facility] Blood specimen (specimen) 02/01/2021 9:44 AM CDT 02/01/2021 9:58 AM CDT us Dolores Cabral NP LAB MICROBIOLOGY - GENER AL ORDERABLES Edited Result - Final [facility] Department [place] [address] from Last 3 Months or Most Recently Relevant to Health Maintenance Additional Health Concerns Infection Onset Date Last Indicated 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 09/26/21; 04/23/23 09/26/2021 04/23/20 23 CRE Comment:CRE ESBL E.coli urine 09/26/21; 04/23/23 09/26/2021 04/23/20 23 Insurance [facility] Address: [address] [address] [place] [address] [employer] MED[employer]ARE CHOICE PLUS [facility]PP[facility] Address: [address] [place] [address] [employer] [facility] CHOICE PLUS [facility] Address: [id number] [place] [address] [employer] Advance Directives For more information, please contact: [phone] * Full Code (Latest Code Status on File) Date Activated Date Inactivated Comments 04/26/2023 3:12 PM 04/28/2023 5:31 PM * Full Code Date Activated Date Inactivated Comments 08/29/2021 2:48 AM 09/01/2021 9:12 PM * Full Code Date Activated Date Inactivated Comments 08/07/2021 9:58 PM 08/10/2021 7:02 PM * Full Code Date Activated Date Inactivated Comments 07/14/2021 5:12 AM 07/20/2021 9:26 PM * Full Code Date Activated Date Inactivated Comments 02/28/2021 3:18 AM 03/06/2021 9:24 PM Healthcare Agents on File Name [facility] Trivedi Mother Health Care Agent Care Teams Mental Health Professional Relationship Specialty Start Date End Date Jc Ramirez MD PCP - General Internal Medicine 11/20/18 [place] [address] [address] Consulting Physician Cardiovascular Disease 12/15/18 [place] [address] [address] Consulting Physician Pain Management 12/15/18 Daisy Fontenot, RN Registered Nurse 12/29/18 [place] [address] [address] Consulting Physician Pulmonary Disease 08/10/21 [place] [address] [address] Consulting Physician Nephrology 09/01/21
--- OUTSIDE RECORDS SUMMARY | 2025-08-02 15:44 | XMS_ITS | Clinical Summary ---
Author Organization [facility] Address [address] [place] [address] Care Team Providers Care Printed Circuit Board Drafter Name Role Phone Jc Ramirez MD Primary Care Provider [phone] Source Comments [facility],non-owned Affiliates and Associated Physician Practices is amultiple site organization consisting of ambulatory clinics and hospital sitesin [place], [place], [place] and [place]. This disclosure is being madepursuant to the Care Everywhere program and may not contain all information available regarding this patient. Last updated 18.[facility] Allergies Active Allergy Reactions Criticality Noted Date Comments Tramadol Dizziness 02/13/2018 Hydrocodone-Acetaminophen Dizziness 02/13/2018 Medications * Be aware that medications may not be up to date on this document. Alwaysverify current medications with the patient. montelukast (SINGULAIR) 10 MG tablet Take 10 mg by mouth at bedtime Active HYDROmorphone (DILAUDID) 8 MG tablet Take 8 mg by mouth every 3 hours as needed for Pain Active azelastine-flut icasone (DYMISTA) 137-50 MCG/ACT nasal spray Leon into each nostril once daily Active pregabalin (LYRICA) 150 MG capsule Take 150 mg by mouth 3 times daily Active cetirizine (ZYRTEC ALLERGY) 10 MG tablet Take 10 mg by mouth once daily Active busPIRone (BUSPAR) 15 MG tablet Take 15 mg by mouth 4 times daily Active levomilnacipran ER (FETZIMA) 120 MG capsule Take 120 mg by mouth once daily Active L-Methylfolate- Algae (DEPLIN 15 PO) Take 15 mg by mouth once daily Active clonazePAM (KLONOPIN) 0.5 MG tablet Take 0.5 mg by mouth nightly as needed for Anxiety Active naproxen-esomep razole EC (VIMOVO) 500-20 MG tablet Take 1 tablet by mouth 2 times daily,before breakfast and supper Active ciprofloxacin (CIPRO) 500 MG tablet Take 1 tablet by mouth every 12 hours 14 tablet 8 Active Active Problems Problem Noted Date Diagnosed Date Renal stone 02/14/2018 Social History Tobacco Use Types Packs/Day Years Used Date Smoking Tobacco: Never Smokeless Tobacco: Never Alcohol Use Standard Drinks/Week Comments No 0 (1 standard drink = 0.6 oz pur e alcohol) Comments No Sex and Gender Information Value Date Recorded Sex Assigned at Not on file Legal Sex Female 6:32 AM BEAM RACKER Gender Identity Not on file Sexual Orientation Not on file Last Filed Vital Signs Vital Sign Reading Time Taken Comments Blood Pressure 103/70 02/14/2018 4:00 PM CDT Pulse 83 02/14/2018 3:36 PM CDT Temperature 35.8 C (96.5 F) 02/14/2018 3:36 PM CDT Respiratory Rate 16 02/14/2018 3:36 PM CDT Oxygen Saturation 94% 02/14/2018 4:00 PM CDT Inhaled Oxygen Concentration - - Weight 104.3 kg (230 lb) 02/14/2018 11:54 AM CDT Height 170.2 cm (5' 7) 02/14/2018 11:54 AM CDT Body Mass Index 36.02 02/14/2018 11:54 AM CDT Plan of Treatment Health Maintenance Due Date Last Done Comments COLOGUARD (AGES 45-75) - COL ON CA SCREENING 1978 COLON MONITORING 1978 COLONOSCOPY - COLON CA SCREENING 1978 CT COLONOGRAPHY - COLON CA SCREENING 1978 Colorectal Cancer Screening 1978 FIT - COLON CA SCREENING 1978 FLEX SIG - COLON CA SCREENING 1978 LIPID TESTING 1978 MAMMOGRAM 1978 HEPATITIS C SCREENING 07/07/1996 DTAP/TDAP/TD VACCINES (1 - Tdap) 1997 HEPATITIS B VACCINE (1 of 3 - 19+ 3-dose series) 1997 DEPRESSION SCREENING 11/18/2024 COVID-19 VACCINE (2023-2 5 season) 2025 INFLUENZA VACCINE (#1) 2025 09/01/2017 ZOSTER VACCINE (1 of 2) 2028 HIV SCREENING Completed 11/18/1998 HIB VACCINE Aged Out No longer eligi ble based on patient's age to complete this topic HPV VACCINE Aged Out No longer eligi ble based on patient's age to complete this topic MENINGOCOCCAL (Group B) VACC INE SHARED DECISION-MAKING Aged Out No longer eligibl e based on patient's age to complete this topic MENINGOCOCCAL GROUPS A/C/Y/W VACCINE Aged Out No longer eligible b ased on patient's age to complete this topic PNEUMOCOCCAL VACCINE Aged Out No long er eligible based on patient's age to complete this topic Procedures Procedure Name Priority Date/Time Associated Diagnosis Comments HIV-1 HIV-2 ANTIBODIES W RFLX REFLEXED Routine 11/18/1998 12:00 AM BEAM RACKER from Last 3 Months or Most Recently Relevant to Health Maintenance Results * (ABNORMAL) HIV-1 HIV-2 ANTIBODIES W RFLX REFLEXED (11/18/1998 12:00 AM BEAM RACKER) HIV 1/2 EIA Antibody nonreactive [facility] 11/18/1998 Narrative [facility] - 11/18/1998 12:00 AM BEAM RACKER This external order was created through the Results Console. Preferred Lab:->[facility] Historical Provider LAB - CHEMISTRY ORDERABLE S Final Result [facility] [address] [place] [address], [facility] from Last 3 Months or Most Recently Relevant to Health Maintenance Insurance Care Teams Printed Circuit Board Drafter Relationship Specialty Start Date End Date Jc Ramirez MD PCP - General Internal Medicine 02/10/18
[2025-08-03 07:09] LABS: FSH 16.2 mIU/mL (.)
== END 2025-08-02 13:14 | disposition home or self-care (01) ==
LOC: ANHLAB 13:15
PROVIDERS: Obstetrics & Gynecology; PCP Internal Medicine; Visit Provider Anesthesiology
DX: Z01.818 Encounter for other preprocedural examination (principal); N19 Unspecified kidney failure; N92.1 Excessive and frequent menstruation with irregular cycle
CPT/HCPCS: 36415; 80048; 83001; 85610; 85730

== ENCOUNTER 2025-08-05 00:22 | Day surgery (SDC) | payer OTHER, SELFPAY ==
[2025-07-29 15:31] VITALS: BMI 28.2
--- NOTE | 2025-07-29 15:33 | PC.NURSE ---
Report to the Outpatient Waiting Room, entrance under the green pavilion located off [facility], at time _0830_ on date _[id number]_. Planned Procedure Time: _1030_.? Time changes happen often and if your time is changed the preop area will call you the afternoon before. - You and your visitor will be asked to self-screen and do not enter if you have any COVID symptoms. Please call surgeon if you need to reschedule. - A mask is optional within the hospital at this time. Patients may have clear liquids (water, carbonated beverages, clear teas, apple juice) until 3 hours prior to surgery with a maximum of 20 ounces. - No food from midnight until time of surgery and no smoking, or chewing tobacco (or any form of nicotine). No chewing gum, candy or mints. Take only the following medications with a SIP of water on the morning of surgery: __Buprenorphine-Naloxone, Hydroxizine, Fluoxetine, and Escitalopram___ DO NOT STOP ANY OF YOUR OTHER PRESCRIPTION MEDICATIONS PRIOR TO SURGERY EXCEPT THE FOLLOWING Hold all vitamins and supplements for 3 days per anesthesiologist. Medications to discontinue per physician Date to take last ddra____[id number]____ Please no make-up, nail chinese, hairspray, perfume, deodorant, or body powder the day of surgery.? No jewelry (including any body piercings) or valuables the day of surgery, leave them at home.? Please take a shower or bath the night before, or the morning of, surgery with an antibacterial soap.? Wear comfortable, loose fitting clothing.? - Jewelry must be removed prior to entering the operating room.? Rings and piercings that are not removed may be cut off. - The hospital will not accept responsibility for valuables.? - Please leave all valuables, including medications, at home the day of surgery. If you are going home after surgery, a licensed pharmacy delivery driver must drive you home.? - NO public transportation without another adult if you receive anesthesia. - We recommend that an adult stay with you for 24 hours following discharge. - We also recommend that you do not drive, make important decision, drink alcoholic beverages, or take any drugs that were not prescribed by your health care provider for at least 24 hours after your discharge time. Follow any additional instructions given to you from your surgeon. Telephone instructions given to ___Cory__and asked if any additional questions and then verbalized understanding. Patient advised to call surgeon office or pre surgery nurse liaison [phone] if any additional questions.
[2025-08-05] VITALS (9 sets, daily range): BP systolic 97–126; BP diastolic 62–77; PULSE 66–83; RESP 12–18; TEMP 36.3; O2SAT 96–100
--- OUTSIDE RECORDS SUMMARY | 2025-08-05 00:25 | XMS_ITS | Clinical Summary ---
Author Organization [facility] [email or web address] [facility] Address [address] [address] Phone Care Team Providers Care Artist Suspect Name Role Phone Jc Ramirez MD Primary Care Provider [phone] Medications Azelastine-Flutic asone 137-50 MCG/ACT suspension Administer [...] history exists Insurance Medicaid [place] Care Teams Artist Suspect Relationship Specialty Start Date End Date Jc Ramirez MD PCP - General Internal Medicine 05/15/21
--- OUTSIDE RECORDS SUMMARY | 2025-08-05 00:25 | XMS_ITS | Clinical Summary ---
Author Organization [facility] Address [address] [place] [place] [address] Care Team Providers Care Thermocouple Tester Name Role Phone Jc Ramirez MD Primary Care Provider [phone] Source Comments [facility],non-owned Affiliates and Associated Physician Practices is amultiple site organization consisting of ambulatory clinics and hospital sitesin [place], [place], [place] and [place]. This disclosure is being madepursuant to the Care Everywhere program and may not contain all information available regarding this patient. Last updated 18.[facility] Allergies Active Allergy Reactions Criticality Noted Date [...] azelastine-flut icasone (DYMISTA) 137-50 MCG/ACT nasal spray [place]iku into each nostril once daily Active pregabalin [...] on file Legal Sex Female 6:32 AM DATA SCIENTIST Gender Identity Not on file Sexual Orientation [...] W RFLX REFLEXED Routine 11/18/1998 12:00 AM DATA SCIENTIST from Last 3 Months or Most Recently Relevant to Health Maintenance Results * (ABNORMAL) HIV-1 HIV-2 ANTIBODIES W RFLX REFLEXED (11/18/1998 12:00 AM DATA SCIENTIST) HIV 1/2 EIA Antibody nonreactive [facility] 11/18/1998 Narrative [facility] - 11/18/1998 12:00 AM DATA SCIENTIST This external order was created through the Results Console. Preferred Lab:->[facility] Provider LAB - CHEMISTRY ORDERABLE S Final Result [facility] [address] [place] [address], [facility] from Last 3 Months or Most Recently Relevant to Health Maintenance Insurance Care Teams Thermocouple Tester Relationship Specialty Start Date End Date Jc Ramirez MD PCP - General Internal Medicine 02/10/18
--- OUTSIDE RECORDS SUMMARY | 2025-08-05 00:25 | XMS_ITS | Encounter Summary ---
Author Organization [facility] Address [address] [facility] [address] [place] [address] Phone Care Team Providers Care General Road Supervisor Name Role Phone Jc Ramirez MD Primary Care Provider [phone] Norberto Tsang MD Unavailable [phone] Byron Mark MD Unavailable Daisy Fontenot RN Unavailable Unavailab Walker Ricks MD Unavailable [phone] Jordy Ryan DO Unavailable [phone] Encounter Details Date Type Department Care Team (Late st Contact Info) Description 02/28/2021 Ophth Exam [facility] Medicine Ophthalmology [address] [place] [address] [place] [id number] Adalid Sultana MD [address] [place] [address] Social History Tobacco Use Types [...] often do you attend chur ch or restorationist services? Never 02/02/2021 Do you belong to any clubs o r organizations such as nondenominational groups, unions, fraternal or athletic groups, or [...] on file Legal Sex Female 9:07 AM AGGREGATE CONVEYOR OPERATOR Gender Identity Female 06/12/2021 7:17 PM CDT [...] heme, attached 360 w/o RD/RT Care Teams General Road Supervisor Relationship Specialty Start Date End Date Jc Ramirez MD PCP - General Internal Medicine 11/20/18 [place] [address] [address] Consulting Physician Cardiovascular Disease 12/15/18 [place] [address] [address] Consulting Physician Pain Management 12/15/18 Daisy Fontenot, RN Registered Nurse 12/29/18 [place] [address] [address] [address] Consulting Physician Pulmonary Disease 08/10/21 [place] [address] [address] [address] Consulting Physician Nephrology 09/01/21 documented as of this encounter
--- OUTSIDE RECORDS SUMMARY | 2025-08-05 00:25 | XMS_ITS | Encounter Summary ---
Author Organization [facility] Address [address] [place] [address] Phone Care Team Providers Care Printed Circuit Board Panels Trimmer Name Role Phone Jc Ramirez MD Primary Care Provider [phone] Reason for Visit * Reason Comments Med Refill Encounter Details Date Type Department Care Team (Late st Contact Info) Description 08/13/2022 Refill [facility] [address] [address] [place] [address] [place] [address] Social History Tobacco Use Types Packs/Day [...] on filedocumented in this encounter Care Teams Printed Circuit Board Panels Trimmer Relationship Specialty Start Date End Date Jc Ramirez MD PCP - General Internal Medicine 05/15/21 documented as of this encounter
--- OUTSIDE RECORDS SUMMARY | 2025-08-05 00:25 | XMS_ITS | Encounter Summary ---
Author Organization [facility] Address [address] [place] [address] Phone Care Team Providers Care Overlock Waistline Joiner Name Role Phone Jc Ramirez MD Primary Care Provider [phone] Reason for Visit * Reason Comments New Med Request Encounter Details Date Type Department Care Team (Late st Contact Info) Description 07/24/2022 Refill [facility] [address] [address] [place] [address] [place] [address] Social History Tobacco Use Types Packs/Day [...] on filedocumented in this encounter Care Teams Overlock Waistline Joiner Relationship Specialty Start Date End Date Jc Ramirez MD PCP - General Internal Medicine 05/15/21 documented as of this encounter
--- OUTSIDE RECORDS SUMMARY | 2025-08-05 00:25 | XMS_ITS | Clinical Summary ---
Author Organization [facility] Address [address] [place] [address] Phone Care Team Providers Care Brass Chaser Name Role Phone Jc Ramirez MD Primary Care Provider [phone] Allergies Active Allergy Reactions Criticality Noted Date [...] Units by mouth daily . Active multivitamin,t o-aokw-xp-min (THERA-M) 27-0.4 mg Tablet Take 1 Tab [...] needed. Active azelastine-flu ticasone (DYMISTA) 137-50 mcg/spray [place], Non-Aerosol Administer 1 [place] in each nostril 2 times daily. Active [...] on file Legal Sex Female 5:26 PM MICROELECTRONICS ENGINEER Gender Identity Not on file Sexual Orientation Not on file Last Filed Vital Signs Vital Sign Reading Time Taken Comments Blood Pressure 121/91 11/14/2018 12:33 PM MICROELECTRONICS ENGINEER Pulse 100 11/14/2018 12:33 PM MICROELECTRONICS ENGINEER Temperature 36.8 C (98.3 F) 11/14/2018 12:29 PM MICROELECTRONICS ENGINEER Respiratory Rate 18 11/14/2018 12:29 PM MICROELECTRONICS ENGINEER Oxygen Saturation 96% 11/14/2018 12:29 PM MICROELECTRONICS ENGINEER Inhaled Oxygen Concentration - - Weight 99.3 kg (219 lb) 11/13/2018 11:00 PM MICROELECTRONICS ENGINEER Height 170.2 cm (5' 7) 11/13/2018 11:00 PM MICROELECTRONICS ENGINEER Body Mass Index 34.3 11/13/2018 11:00 PM MICROELECTRONICS ENGINEER Plan of Treatment Health Maintenance Due Date [...] Tdap) 11/12/2028 Medical Devices Implanted Type Area Pattern Drum Maker Device Identifier Shelf Expiration Date Model / Serial / Lot Metronic Capstone Spinal System Implanted:Qty: 1 on 04/15/2015 by Jay Greenberg MD at [facility] Cage N/A: Spine Lumbar MED[employer] - SPINAL fka KYPHON 11/25/2020 [id number] / / [id number] Mm Darío Implanted:Qty: 2 on 04/15/2015 by Jay Greenberg MD at [facility] Darío N/A: Spine Lumbar [employer] - SPINAL fka KYPHON [id number] / / Description:sterilized march 192014 load 413 Screw Solera Ma 6.5x40mm [id number] - Ssterilized April 14, 2015 Load 413 Implanted:Qty: 2 on 04/15/2015 by Jay Greenberg MD at [facility] Screw Left: Spine Lumbar MEDTR[employer]- SOFAMOR DANEK [id number] / STERILIZED APRIL 14, 2015 LOAD 413 / Screw Solera Pooja Ma 7.5x35mm [id number] - Ssterilized April 14, 2015 Load 413 Implanted:Qty: 2 on 04/15/2015 by Jay Greenberg MD at [facility] Screw Left: Spine Lumbar MEDTR[employer]- SOFAMOR DANEK [id number] / STERILIZED APRIL 14, 2015 LOAD 413 / Set Screw Sextant Break-Off [id number] - Ssterilized April 14, 2015 Load 413 Implanted:Qty: 4 on 04/15/2015 by Jay Greenberg MD at [facility] Screw Left: Spine Lumbar MEDTR[employer]- SOFAMOR DANEK [id number] / STERILIZED APRIL 14, 2015 LOAD 413 / Sealant Floseal W/ Adptr 10ml [id number] - [id number] Implanted:Qty: 1 on 04/15/2015 by Jay Greenberg MD at [facility] Sealant Left: Spine Lumbar [place]- BIOSCIENCE 07/18/2016 [id number] / / [id number] [place] Dbm Matrix Strips Implanted:Qty: 1 on 04/15/2015 by Jay Greenberg MD at [facility] MEDTRONIC- SOFAMOR DANEK 10/31/2017 [id number] / [id number] / [place] [id number] [facility] Address: [facility] [id number] [place] [id number] MEDICARE PART A AND B Advance Directives For more information, please contact: [phone] * Full Code (Latest Code Status on File) Date Activated Date Inactivated Comments 11/13/2018 1:06 AM 11/14/2018 5:51 PM * Full Code Date Activated Date Inactivated Comments 04/15/2015 7:11 AM 04/17/2015 5:40 PM * Full Code Date Activated Date Inactivated Comments 04/15/2015 6:12 AM 04/15/2015 7:11 AM Care Teams Brass Chaser Relationship Specialty Start Date End Date Jc Ramirez MD [address] [place] [id number] PCP - General Internal Medicine 11/12/18
--- OUTSIDE RECORDS SUMMARY | 2025-08-05 00:26 | XMS_ITS | Clinical Summary ---
Author Organization [facility] Address [address] [place] [address] Care Team Providers Care Souvenir Street Vendor Name Role Phone Jc Ramirez MD Primary Care Provider [phone] Norberto Tsang MD Unavailable [phone] Byorn Mark MD Unavailable [phone] Daisy Fontenot RN Unavailable Unavailab Walker Ricks MD Unavailable Jordy Ryan DO Unavailable Allergies Active Allergy [...] hyoscyamine 0.125 mg disintegrating tablet Active multivitamin,tx-ir yq-Zo-RT-min 27-0.4 mg tablet Take 1 tablet by [...] ED. I confirmed w/ the clinical phamacist vice president investor relations that one dose is adequate. If she [...] ED. I confirmed w/ the clinical phamacist vice president investor relations that one dose is adequate. If she [...] Most likely etiology is polypharmacy with numerous POLICE CAPTAIN active meds, including suboxone, fluoxetine, atarax prn & buspirone prn (takes multiple doses of both daily), Azstarys (recently started for ADHD), Dayvigo (for insomnia), hyoscyamine. EKG ok. Low c/f overall for cardiac or POLICE CAPTAIN etiology. - Hold buspirone, hold Azstarys (serdexmethylphenidate [...] etiology. Most likely is polypharmacy with numerous POLICE CAPTAIN active meds, including suboxone, fluoxetine, atarax prn & buspar prn (takes multiple doses of both daily), Azstarys (recently started for ADHD), dayvigo (for insomnia), hyosciamine. EKG ok. Low c/f overall for cardiac or POLICE CAPTAIN etiology. -Hold buspar, hold Azstarys, hold dayvigo [...] - continue suppressive therapy with Bactrim for snf suppression. - CBC and CMP wnl. - [...] place, will start patient on Bactrim for filler leaf cutter long suppression. - CBC and CMP wnl. Muscle twitching 02/27/2021 Cerebral edema 01/31/2021 POLICE CAPTAIN infection 01/31/2021 Bacteremia 01/30/2021 Assessment & Plan (04/04/2021 1:25 PM CDT): - MSSA & Klebsiella bacteremia - Brain MRI showed cerebral edema with transtentorial herniation, unclear if there may be Klebsiella in the brain, due to herniation an LP was not possible. Antibiotics were dosed for treatment of meningitis. -- completed oxacillin + cipro at POLICE [employer]TAIN dosing x 6 weeks oxacillin (end date [...] (09/02/2020): Added automatically from request for surgery [id number] Influenza A 01/09/2020 Morbidly obese 01/09/2020 GERD [...] Bacteremia due to Klebsiella pneumoniae 01/2021 Seizures ([facility]) Bronchiectasis Renal disorder Family History Medical History [...] often do you attend chur ch or congregational services? Never 08/29/2021 Do you belong to any clubs o r organizations such as denominational groups, unions, fraternal or athletic groups, or [...] place to sleep or slept in a retirement (including now)? No 08/29/2021 Personal Safety Answer Date Recorded Have you ever been in or are you currently in a harmful physical or emotional relationship or is someone making you feel afraid or unsafe? Denies 04/26/2023 Comments No Sex and Gender Information Value Date Recorded Sex Assigned at Not on file Legal Sex Female 9:07 AM FAMILY SERVICE CASEWORKER Gender Identity Female 06/12/2021 7:17 PM CDT [...] Completed 02/01/2021 Medical Devices Explanted Type Area Roll Slicing Machine Tender Device Identifier Shelf Expiration Date Model / Serial / Lot [employer] [id number] Inlay [place] 7fr 28cm Pusher Fluoro Marker Atraumatic Insertion Latex Free - [id number] Implanted:Qty: 1 on 01/29/2021 by Nelson Dodson MD at [facility] Explanted:Qty: 1 on 04/23/2023 Left: Urethra [employer] [id number] 08/04/2025 [id number] / / [id number] Procedures Procedure Name Priority Date/Time Associated Diagnosis Comments HEPATITIS PANEL, ACUTE Routine 02/01/2021 9:44 AM CDT from Last 3 Months or Most Recently Relevant to Health Maintenance Results * Hepatitis panel, acute (02/01/2021 9:44 AM CDT) Hep A IgM Nonreactive Nonreactive [facility] Comment: Interpretive Data: If Hep A IgM Ab is reported as Equivocal, a new sample should be drawn in two weeks for testing. Current interpretive data was last revised on 20. Hep B core IgM Nonreactive Nonreactive [facility] Comment: Interpretive Data If HepB Core IgM Ab is reported as Equivocal, a new sample should be drawn in two weeks for testing. Current interpretive data was last revised on 20. Hep C Ab Nonreactive Nonreactive [facility] Comment:Antibodies to HCV no t detected. Does NOT exclude the possibility of recent exposure to HCV. HepBsAg Nonreactive Nonreactive [facility] Blood specimen (specimen) 02/01/2021 9:44 AM CDT 02/01/2021 9:58 AM CDT us Dolores Cabral NP LAB MICROBIOLOGY - GENER AL ORDERABLES Edited Result - Final 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 09/26/21; 04/23/23 09/26/2021 04/23/20 23 CRE Comment:CRE ESBL E.coli urine 09/26/21; 04/23/23 09/26/2021 04/23/20 23 Insurance [facility] H[facility]/PP[facility] Address: [address] [address] [place] [address] IDPA MEDICARE [facility] Address: [address] [address] [place] [address] CHOICE PLUS [facility] HMO/PPO Address: [address] [place] [address] [employer]PA [facility] CHOICE PLUS [facility] HMO/PPO Address: [address] [place] [address] IDPA Advance Directives For more information, please contact: [phone] * Full Code (Latest Code Status on [...] Agents on File Name Relationship [facility] Vania Trivedi Mother Health Care Agent Care Teams [address] Vendor Relationship Specialty Start Date End Date Jc Ramirez MD PCP - General Internal Medicine 11/20/18 [place] [address] [address] Consulting Physician Cardiovascular Disease 12/15/18 [place] [address] [address] Consulting Physician Pain Management 12/15/18 Daisy Fontenot, RN Registered Nurse 12/29/18 [place] [address] [address] Consulting Physician Pulmonary Disease 08/10/21 [place] [address] [address] Consulting Physician Nephrology 09/01/21
--- NOTE | 2025-08-05 07:04 | WPDHPUPDATE1 ---
History and Physical Update Update Date/Time: 08/05/25 07:04 History and Physical has been reviewed, including an updated exam of the patient. There are NO changes in the patient's condition. Risks, benefits, and alternatives have been discussed and questions answered. Patient agrees to proceed with procedure.
[2025-08-05] MEDS: ACETAMINOPHEN 500 MG TABLET 1000 MG PO (08:55)
[2025-08-05] MEDS: LACTATED RINGERS 1,000 ML 30 ML IV CONT ×2 (09:00→11:54)
[2025-08-05] MEDS: KETOROLAC 15 MG/ML VIAL (*BKC) IV PUSH (09:08)
--- NOTE | 2025-08-05 10:49 | WPDANESEPPF ---
Anes - Initial Pre Proc Eval Procedure: Operation Date: 08/05/25 10:30 Proposed Procedures p Hysteroscopy, Dilation and Curettage, Sade Endometrial Ablation, Bilateral Laparoscopic Salpingectomy - Ronak Peterson MD Date/Time: 08/05/25 10:49 Surgeon: Ronak Peterson MD Pre Op Diagnosis: Abnormal Uterine Bleeding Patient Data Age: 45 Gender: F Height: 1.7 m Weight: 78.8 kg Last Vital Signs Temp 36.3 C L 08/05/25 08:50 Pulse 83 08/05/25 08:50 Resp 18 08/05/25 08:50 BP 109/71 08/05/25 08:50 Pulse Ox 96 08/05/25 08:50 O2 Del Method Room Air 08/05/25 08:50 Allergies Allergy/AdvReac Type Severity Reaction Status Date / Time adhesive tape AdvReac Severe hives Verified 08/05/25 08:56 hydrocodone (From Vicodin) AdvReac Gastrointestinal Verified 08/05/25 08:56 Upset levetiracetam (From Keppra) AdvReac Other Verified 08/05/25 08:56 tramadol AdvReac Gastrointestinal Verified 08/05/25 08:56 Upset Home Medications ?Medication ?Instructions ?Recorded ?Confirmed ?Type buprenorphine 8 mg-naloxone 2 mg 1 film buccal BID 07/29/25 08/05/25 History sublingual film buspirone 15 mg tablet 15 mg PO QID 07/29/25 08/05/25 History cholecalciferol (vitamin D3) 25 1,000 unit PO DAILY 07/29/25 08/05/25 History mcg (1,000 unit) tablet (Vitamin D3) cyanocobalamin (vitamin B-12) 1,000 mcg PO DAILY 07/29/25 08/05/25 History 1,000 mcg tablet (Vitamin B-12) escitalopram oxalate 20 mg tablet 20 mg PO DAILY 07/29/25 08/05/25 History ferrous sulfate 325 mg (65 mg 325 mg PO TID 07/29/25 08/05/25 History iron) tablet (FeroSul) fluoxetine 20 mg capsule (Prozac) 20 mg PO DAILY 07/29/25 08/05/25 History hydroxyzine HCl 25 mg tablet 25 mg PO Q8H PRN anxiety 07/29/25 08/05/25 History methylphenidate HCl 40 mg 40 mg PO HS 07/29/25 08/05/25 History capsule,delayed release,ext release sprinkle (Jornay PM) modafinil 200 mg tablet 200 mg PO BID 07/29/25 08/05/25 History serdexmethylphenidate 39.2 1 tablet PO .noon 07/29/25 08/05/25 History mg-dexmethylphenidate 7.8 mg capsule (Azstarys) Patient hx anesthesia problems: post op nausea/vomiting Family hx anesthesia problems: none Results Review: All pre-operative results and documents have been reviewed as part of the pre-operative evaluation. [facility]LY [facility] Past Medical History Medical History (Updated 07/20/25 @ 14:49 by Ronak Peterson MD) Back pain Nausea Vomiting Septic angina Acute meningitis Blood infection Kidney infection Coma (01/16/21) Chronic pain syndrome Surgical History Surgical History (Updated 07/20/25 @ 14:35 by DREAD Sykes) Delivery by section History of back surgery x 4 History of lung biopsy H/O brain surgery H/O gastric bypass Family History Family History (Updated 07/20/25 @ 14:29 by DREAD Sykes) Mother Skin cancer Other Carcinoma of colon maternal uncle Breast cancer maternal aunt Other Cerebrovascular accident Social History Social History (Updated 07/20/25 @ 14:30 by DREAD Sykes) Smoking status: Never smoker Second hand tobacco smoke exposure: No Alcohol intake: current Substance use: never Substance use type: does not use Do You Feel Safe in your Home?: Yes Lack of Transportation: No Lack of Food: Never True Current Housing: Decline to Answer Concerned About Future Housing: Decline to Answer Difficulty Paying Gas/Electric Bills: Decline to Answer Difficulty Paying for Meds: Decline to Answer Currently Unemployed: Decline to Answer Education: Decline to Answer Difficulty w/ Childcare or Family Care: Decline to Answer Living arrangements: alone Additional living arrangements comments: lives with son Occupation/Education: occupation Additional occupation/education comments: tutoring assistant [employer] Gender identity (if verbalized by the patient): Female Sexual Orientation (if Verbalized by the Patient): Straight or Heterosexual Spiritual care concerns: No Anes - Eval Final PreProcedure Day of Procedure 08/05/25 10:49 Patient weight: overweight Heart: regular rate and rhythm Lungs: clear to auscultation Airway: Mallampati scale class II and special considerations poor dentition Neurological: alert and oriented Last oral intake: >/= 8 hours ASA classification: III Emergent: no Anesthetic plan: proceed Anesthesia type and monitoring: general ETT and standard monitoring Results Review: All pre-operative results and documents have been reviewed as part of the pre-operative evaluation. Informed Consent: The patient's anesthetic plan and its attendant risks and benefits were discussed with the patient/family/POA. Questions were solicited and answers provided to the satisfaction of the patient/family/POA.
[2025-08-05] MEDS: SCOPOLAMINE 1 MG PATCH 1 PATCH TRANSDERM (11:00)
[2025-08-05] MEDS: ceFAZolin 2 GM in SODIUM CHLORIDE 0.9% IV 50 ML 100 ML IVPB (11:07)
[2025-08-05 11:17] LABS: BEDSIDEPREGUCG Negative (Negative)
--- NOTE | 2025-08-05 11:36 | S_PTH ---
PATIENT: Sixto Becerra LOC: [facility] U#:[id number] AGE/SX: 45/F ROOM: RE08/05/[address]: Ronak Peterson MD : 1980 BED: DIS: 08/05/2025 SPEC #: [id number] RECD: 08/05/25 13:20 STATUS: ANGELA REQ #: [id number] JUANI: 08/05/25 11:[address]: Ronak Peterson DEPT: [facility] Surgical RECD BY: Tati Gomez ENTERED: 08/05/25 13:21 SP TYPE: Surgical OTHR DR: Jc Ramirez, Tissues: A - Fallopian Tube Bilateral B - Endometrial Curettings Procedures: Gross and Microscopic Level 2 Hematoxylin and Eosin Stain Gross and Microscopic Level 4
--- NOTE | 2025-08-05 11:53 | W.PM.PROC2 ---
Procedure Note - Detailed Date of Procedure 08/05/25 Pre-op Diagnosis 1. Menometrorrhagia 2. Undesired fertility Post-op Diagnosis Same Procedure Performed 1. Hysteroscopy with uterine curettings 2. Sade endometrial ablation 3. laparoscopic bilateral salpingectomy Surgeon Ronak Peterson MD Anesthesia General Findings 1. Uterus tubes ovaries without abnormality Two endometrial cavity abnormality Description of Procedure Patient prepped draped usual manner this procedure. Uterine measurements were placed will mobility throughout case abdominal trocar sites were placed under direct visualization and using the LigaSure the mesial salpinx was cauterized and cut bilaterally and tubes removed without difficulty. There was no bleeding. Gas allowed to escape and incisions approximated 4-0 Monocryl. Cervix dilated to allow the hysteroscope placed and this was done without difficulty and no abnormalities noted. Curettings were obtained Sade instrument was placed cavity assessment performed, instrument activated. Procedure good destruction was noted throughout this point the procedure was considered terminated. Patient was sent to recover in stable condition. Estimated Blood Loss 10 Drains No Packing No Pathology Yes Complications No immediate complications Condition Stable Disposition PACU [facility] Billing Surgery - Charge Forward: Surgery Billing
[2025-08-05] MEDS: oxyCODONE HCL (*CRX) 5 MG TAB IR PO (13:08)
== END 2025-08-05 14:02 | disposition home or self-care (01) ==
PROVIDERS: PCP Internal Medicine; Visit Provider Obstetrics & Gynecology
PROC: 0UDB8ZZ Extraction of Endometrium, Via Natural or Artificial Opening Endoscopic (ICD-10-PCS; CPT 58558; principal; 2025-08-05 10:30)
DX: N83.8 Other noninflammatory disorders of ovary, fallopian tube and broad ligament (principal); N85.8 Other specified noninflammatory disorders of uterus; G89.18 Other acute postprocedural pain; G89.4 Chronic pain syndrome; Z98.890 Other specified postprocedural states; Z98.1 Arthrodesis status; Z98.84 Bariatric surgery status; Z84.0 Family history of diseases of the skin and subcutaneous tissue; Z80.0 Family history of malignant neoplasm of digestive organs; Z80.3 Family history of malignant neoplasm of breast
CPT/HCPCS: 58563; 58661; 88302; 88305; J0690; A9270; J1100; J1885; J2003; J2250; J2405; J2704; J3010; J7120